=== PATIENT | male | born 1975 | race Caucasian/White ===

== ENCOUNTER 2016-06-14 11:25 | Outpatient (RCR) | payer MEDICAID ==
[~2016-06-14 11:25] MED LIST: NEOM10SO5 LEFT EAR; OXYC-12 PO; TRM50T PO; augmentin
--- OUTSIDE RECORDS SUMMARY | 2016-06-14 11:29 | XMS REPORT | Continuity of Care Document ---
Author Author [facility] Organization [facility] Address Unknown Phone Unavailable Care Team Providers Care Wicker Worker Name Role Phone NO, LOCAL PHYSICIAN PP Unavailable Insurance Providers Payer Name Policy Number Subscriber Name Relationship Self Pay Junito Palacio 01 Self / Same As Patient Advance Directives Directive Response Recorded Date Advance Directives N 11/26/12 7:16pm Problems No Known Problems or Medical conditions. Social History History Response Recorded Date/Time Alcohol Use Occasionally Uses 11/26/12 7: 16pm Recreational Drug Use N 11/26/12 7:16pm Allergies, Adverse Reactions, Alerts Allergen Type Severity Reaction Last Updated No Known Drug Allergies 11/26/12 Medications Medication Dose Units Route Sig Qty Days Tramadol HCl (Ultram) 50 Mg PO Q4H 14 Response Recorded Date/Time Status not known Unknown Results No Known Relevant Diagnostic Tests, Laboratory Data and/or Discharge Summary. Encounters Encounter Location Date/Time Departed Emergency Room [facility] [place] [facility] 7:12pm
[2016-07-04] MEDS ORDERED: PANT40TA2 PO (09:56)
[2016-07-04] MEDS ORDERED: SUCR1TAB36 PO (15:28)
== END 2016-09-12 | disposition home or self-care (01) ==
LOC: LAB 11:25
PROVIDERS: ATTEND Surgery
DX: R19.7 Diarrhea, unspecified (principal); R12 Heartburn

== ENCOUNTER 2016-07-04 09:13 | Day surgery (SDC) | payer MEDICAID ==
[~2016-07-04] VITALS: Ht 185.4 cm; Wt 95.7 kg
[~2016-07-04 09:13] MED LIST changes: +NS IV 1000 ML 1,000 ML ONE
[2016-07-04 09:47] VITALS: BP 126/84
[2016-07-04] MEDS ORDERED: PANT40TA2 PO (09:56)
[2016-07-04] MEDS ORDERED: HURRICAINE EXT TUBE (BENZOCAINE) XX PRN (10:00)
[2016-07-04] MEDS ORDERED: NALOXONE 0.4 MG/ML 1 ML (NARCAN) VIAL IVP PRN (10:00)
[2016-07-04] MEDS ORDERED: fentaNYL INJECTION 100 MCG/2 ML AMP IVP PRN (10:00)
[2016-07-04] MEDS ORDERED: MIDAZOLAM 2 MG/2 ML (VERSED) VIAL IVP PRN (10:00)
[2016-07-04] MEDS ORDERED: FLUMAZENIL (ROMAZICON) 0.1 MG/ML 5 ML VIAL INJ PRN (10:00)
[2016-07-04] MEDS ORDERED: HURRICAINE EXT TUBE (BENZOCAINE) ONE (12:56)
[2016-07-04] MEDS ORDERED: MIDAZOLAM 2 MG/2 ML (VERSED) VIAL ONE (14:08)
[2016-07-04] MEDS ORDERED: PROPOFOL INJECTION 50 ML IV ONE (14:08)
[2016-07-04] MEDS ORDERED: LACTATED RINGERS 1,000 ML IV ONE (14:12)
[2016-07-04] MEDS ORDERED: 1/2 NS IV SOLUTION 1,000 ML IV ONE ×2 (14:13→14:30)
--- NOTE | 2016-07-04 14:14 | Progress Note-Pre Operative ---
Pre-Operative Progress Note H&P Reviewed The H&P was reviewed, patient examined and no changes noted. Date H&P Reviewed: Jul 04, 2016 Time H&P Reviewed: 14:14 Pre-Operative Diagnosis: gerd, diarrhea LORI KANG DO Jul 04, 2016 2:14 pm
[2016-07-04] MEDS ORDERED: proPOfol 200 MG/20 ML (DIPRIVAN) VIAL IV ONE ×2 (14:50→15:09)
[2016-07-04] MEDS ORDERED: SUCR1TAB36 PO (15:28)
--- NOTE | 2016-07-04 15:30 | Discharge Inst-Simple/Standard ---
Discharge Inst-Standard Discharge Medications New, Converted or Re-Newed RX: RX on Chart Patient Instructions/Follow Up Plan of Care/Instructions/FU: Follow up with Dr. Caro in 2-3 weeks Will need repeat colonoscopy in 3 months Activity as Tolerated: Yes Discharge Diet: No Restrictions ZEE ESCALANTE APRN Jul 04, 2016 15:30
--- NOTE | 2016-07-04 15:31 | Progress Note-Post Operative ---
Post-Operative Progess Note Pre-Operative Diagnosis gerd, diarrhea Post-Operative Diagnosis gastritis, esophagitis, hiatal hernia, colon polyps Post-Op Procedure Note Date of Procedure: Jul 04, 2016 Name of Procedure: egd c biopsies, colonoscopy with hot bx polypectomy x 10, snare polypectomy x1 Procedure Note/Findings see note Anesthesia Type per consumer education specialist Estimated blood loss (mL): none Specimen(s) collected colon polyps, antrum, ge junction LORI KANG DO Jul 04, 2016 3:31 pm
[2016-07-04 15:45] VITALS: BP 141/92
[2016-07-04] MEDS ORDERED: ONDANSETRON 4 MG/2 ML (SDV) Z0FRAN ONE (15:47)
[2016-07-04] MEDS ORDERED: ONDANSETRON 4 MG/2 ML (SDV) Z0FRAN IVP ONE (16:00)
[2016-07-04 16:15] VITALS: BP 140/89
[2016-07-04 16:40] VITALS: BP 140/89
--- NOTE | 2016-07-05 09:22 | OPERATIVE REPORT ---
PROCEDURE PHYSICIAN: LORI KANG DATE OF PROCEDURE: 07/04/2016 PREOPERATIVE DIAGNOSIS: 1. GERD. 2. Diarrhea. POSTOPERATIVE DIAGNOSES: 1. Gastritis. 2. Esophagitis. 3. Hiatal hernia. 4. Colon polyps. PROCEDURE: 1. EGD biopsies. 2. Colonoscopy with hot biopsy polypectomy x 8 and snare polypectomy x 1. SURGEON: Gordo ANESTHESIA: Per NEUROSURGERY RESEARCH DIRECTOR. ESTIMATED BLOOD LOSS: None. COMPLICATIONS: None. INDICATIONS: The patient is a 40-year-old male who presented with diarrhea and reflux symptoms. He understands the risks and benefits of the procedures and wished to proceed with procedures. Consent was signed on the chart. PROCEDURE: The patient was taken to the endoscopy suite, placed in the left lateral recumbent position. Timeout was performed. The scope was inserted in the mouth, down the esophagus, stomach and into the duodenum. There were no polyps, masses or ulcerations within the duodenum. The scope was slowly retracted back into the stomach where the stomach was further insufflated. There are some erythematous changes consistent with gastritis around the antrum and slightly around the body of the stomach. Biopsy of the antrum was obtained. The scope was also retroflexed noting a small hiatal hernia. The scope was returned to its normal position slowly withdrawn into the distal esophagus demonstrating some erythematous changes, which biopsy of the GE junction was obtained. The scope was then slowly retracted back noting no other pathology. COLONOSCOPY: Digital rectal exam was performed. There were no palpable polyps, masses, ulcerations. Good rectal tone. The scope was inserted in the rectum and advanced all of the way to the cecum with minimal difficulty. Prep was adequate with irrigation and suction. Within the cecum a small polyp was present which hot biopsy polypectomy was performed. The scope was continued to be slowly retracted back into the ascending colon where a small polyp was present which hot biopsy polypectomy was performed. The scope was then slowly retracted back into the transverse colon. There are no polyps, masses, ulcerations within the transverse colon or descending colon. Within the sigmoid colon, there is a small polyp, which hot biopsy polypectomy was performed. There was a second small polyp present which another hot biopsy polypectomy was performed. The scope was then continued be slowly retracted back. At 30 cm there was a large polyp it was pedunculated, which snare polypectomy was performed. The scope had to be slowly withdrawn in order for this to be removed. The scope was then reinserted into the rectum and advanced all way up where the snare polypectomy was performed. The scope was then slowly retracted back demonstrating a small rectal polyp, which hot biopsy polypectomy was performed. The scope was not retroflexed but multiple insertions and retractions were removed. The scope was then slowly retracted until completely removed. The patient tolerated the procedure well without any complications. He was taken to recovery room in stable condition. RECOMMENDATIONS: The patient will be on Protonix and Carafate. I will see how his biopsies return and see what symptoms perform in 2 weeks. We will follow-up on pathology from his colonoscopy with hot biopsy polypectomies and snare polypectomy and we will see what his pathology is but would recommend repeat colonoscopy in 3 months in order to reevaluate due to the size of the sigmoid polypectomy that was snared and also due to the multiple polyps. So at 3 months we should reevaluate due to the large number of polyps and due to the size. We will discussed this at his visit to the clinic. Job ID: [id number] Dictated Date: 07/04/2016 15:37:08 Interrelated Special Education Teacher Date: 07/05/2016 09:09:48 / lima
== END 2016-07-04 16:40 | disposition home or self-care (01) ==
LOC: SDC 09:13
PROVIDERS: ATTEND Surgery
DX: K63.5 Polyp of colon (principal); K62.1 Rectal polyp; R19.7 Diarrhea, unspecified; K29.70 Gastritis, unspecified, without bleeding; K20.9 Esophagitis, unspecified; K44.9 Diaphragmatic hernia without obstruction or gangrene

== ENCOUNTER → 2019-02-27 | Outpatient (CLI) | payer MEDICAID ==
[~2019-02-27] MED LIST changes: +FLUO10CA29 PO; -NS IV 1000 ML 1,000 ML ONE; +PANT40TA2 PO; +SUCR1TAB36 PO
== END | disposition home or self-care (01) ==
LOC: PREOP 05:34
PROVIDERS: ATTEND Surgery
DX: Z01.818 Encounter for other preprocedural examination (principal)

== ENCOUNTER 2019-02-28 09:29 | Day surgery (SDC) | payer MEDICAID ==
[~2019-02-28] VITALS: Ht 185.4 cm; Wt 95.7 kg
[~2019-02-28 09:29] MED LIST changes: -FLUO10CA29 PO
[2019-02-28] MEDS ORDERED: LACTATED RINGERS 1,000 ML IV ONE (09:45)
[2019-02-28 10:05] VITALS: BP 119/74
[2019-02-28] MEDS ORDERED: LACTATED RINGERS 1,000 ML IV STA (10:18)
[2019-02-28] MEDS ORDERED: PROPOFOL INJECTION 50 ML IV ONE (10:22)
[2019-02-28] MEDS ORDERED: FLUO10CA29 PO (10:32)
--- NOTE | 2019-02-28 10:56 | Progress Note-Pre Operative ---
Pre-Operative Progress Note H&P Reviewed The H&P was reviewed, patient examined and no changes noted. Date Seen by Provider: Feb 28, 2019 Time Seen by Provider: 10:55 Date H&P Reviewed: Feb 28, 2019 Time H&P Reviewed: 10:55 Pre-Operative Diagnosis: rectal bleeding LORI KANG DO Feb 28, 2019 10:56
[2019-02-28] MEDS ORDERED: proPOfol 200 MG/20 ML (DIPRIVAN) VIAL IV ONE (11:25)
[2019-02-28 11:55] VITALS: BP 137/65
[2019-02-28 12:00] VITALS: BP 148/89
[2019-02-28] MEDS ORDERED: ONDANSETRON 4 MG/2 ML (SDV) Z0FRAN ONE (12:27)
[2019-02-28 12:30] VITALS: BP 148/87
[2019-02-28] MEDS ORDERED: ONDANSETRON 4 MG/2 ML (SDV) Z0FRAN IVP ONE (12:45)
[2019-02-28 13:00] VITALS: BP 132/74
[2019-02-28 13:15] VITALS: BP 132/74
--- NOTE | 2019-02-28 14:00 | Progress Note-Post Operative ---
Post-Operative Progess Note Surgeon (s)/Cloth Wire Weaver (s) Surgeon LORI KANG DO Cloth Wire Weaver: na Pre-Operative Diagnosis rectal bleeding Post-Operative Diagnosis internal hemorrhoids, colon polyps x 14 Procedure & Operative Findings Date of Procedure 02/28/19 Procedure Performed/Findings colonoscopy with hot bx polypectomy x 6 and snare polypectomy x 8 Anesthesia Type per olive brine tester Estimated Blood Loss Estimated blood loss (mL): none Specimens/Packing Specimens Removed colon polyps LORI KANG DO Feb 28, 2019 14:00
--- NOTE | 2019-02-28 14:10 | Anesthesia-General Post-Op ---
MAC Patient Condition Mental Status/LOC: Same as Preop Cardiovascular: Satisfactory Nausea/Vomiting: Absent Respiratory: Satisfactory Pain: Controlled Complications: Absent Post Op Complications Complications None Follow Up Care/Instructions Patient Instructions None needed. Anesthesiology Discharge Order Discharge Order Patient is doing well, no complaints, stable vital signs, no apparent adverse anesthesia problems. No complications reported per nursing. JIGNA LANGFORD CRNA Feb 28, 2019 14:10
--- NOTE | 2019-02-28 18:36 | OPERATIVE REPORT ---
DATE OF SERVICE: 02/28/2019 PREOPERATIVE DIAGNOSIS: Rectal bleeding. POSTOPERATIVE DIAGNOSES: Internal hemorrhoids and colon polyp x13. PROCEDURE: Colonoscopy with hot biopsy polypectomy x5 and snare polypectomy x8. SURGEON: Lori Caro DO ANESTHESIA: Per PRESCHOOL TEACHER ASSISTANT. ESTIMATED BLOOD LOSS: None. COMPLICATIONS: None. INDICATIONS: The patient is a 43-year-old male with recent rectal bleeding, bright red blood. He understands risks and benefits of procedure and wished to proceed with procedure. Consent was signed in the chart. DESCRIPTION OF PROCEDURE: The patient was taken to the endoscopy suite, placed in left lateral recumbent position. Timeout was performed. Digital rectal exam was performed. There were no palpable polyps, mass or ulcerations. The scope was inserted in the rectum and advanced all the way to cecum with minimal difficulty. Prep was adequate. Scope was then slowly retracted back. There were no polyps, masses or ulcerations within the cecum, ascending and transverse colon. Within the descending colon, a small polyp was present, which hot biopsy polypectomy was performed. Scope was continuously slowly retracted back into the rectum where 2 small polyps were present, which hot biopsy polypectomies were performed on these. A larger polyp was present, which snare polypectomy was performed in 2 pieces. Scope was then continued slowly retracted back through the sigmoid colon, which another polyp was present, which hot biopsy polypectomy was performed. Near this, another small polyp was present, which hot biopsy polypectomy was performed. Scope was continuously retracted back through the more distal sigmoid, which multiple small polyps were present, which were snared, removing a total of 7 in this area. Scope was continued slowly retracted back into the rectum where a little larger polyp was present, which snare polypectomy was performed. Scope was retroflexed noting no other pathology except for the internal hemorrhoids, which were beefy and red. Scope was returned to its normal position, slowly withdrawn until completely removed, noting no other pathology. No evidence of any current active bleeding present. I suspect could be from the internal hemorrhoids. RECOMMENDATIONS: The patient recommended to use some [id number] hemorrhoid cream. He will follow up in approximately two weeks. We would recommend repeat colonoscopy in 6 months to reevaluate due to the number of colon polyps. If he has any bleeding before that we would repeat colonoscopy at that time. Job ID: [id number] DocumentID: [id number] Dictated Date: 02/28/2019 14:11:00 Plant Hr Manager Date: 02/28/2019 18:35:30 Dictated By: LORI CARO DO
== END 2019-02-28 13:15 | disposition home or self-care (01) ==
LOC: ENDO 09:29
PROVIDERS: ATTEND Surgery
DX: K63.5 Polyp of colon (principal); K62.1 Rectal polyp; K62.5 Hemorrhage of anus and rectum; K64.8 Other hemorrhoids; K63.89 Other specified diseases of intestine; F17.210 Nicotine dependence, cigarettes, uncomplicated; Z88.8 Allergy status to other drugs, medicaments and biological substances; Z79.891 Long term (current) use of opiate analgesic; Z79.899 Other long term (current) drug therapy; Z83.3 Family history of diabetes mellitus; Z82.3 Family history of stroke; Z82.49 Family history of ischemic heart disease and other diseases of the circulatory system; Z83.6 Family history of other diseases of the respiratory system; Z81.8 Family history of other mental and behavioral disorders

== ENCOUNTER → 2019-04-09 | Outpatient (CLI) | payer MEDICAID ==
[~2019-04-09] MED LIST changes: +FLUO10CA29 PO
--- NOTE | 2019-04-09 09:57 | Diagnostic Imaging Report ---
PROCEDURE: US Gallbladder. TECHNIQUE: Multiple real-time grayscale images were obtained over the right upper quadrant in various projections. INDICATION: Epigastric pain. FINDINGS: The liver is normal in size at 14.9 cm. No discrete liver mass is identified. The portal vein is patent and shows normal direction of flow. The gallbladder is without stones or sludge. No wall thickening or biliary duct dilatation is identified. The pancreas is unremarkable. The right kidney is without evidence of calculi or hydronephrosis. There is no ascites. IMPRESSION: Unremarkable gallbladder ultrasound. Dictated by: Dictated on workstation # [id number]
== END ==
LOC: RAD 08:46
PROVIDERS: ATTEND Surgery
DX: R10.13 Epigastric pain (principal)
CPT/HCPCS: 76705